=== PATIENT | female | born 1935 | race Two or more races ===

== ENCOUNTER 2017-06-06 16:10 | Inpatient (IN) | payer MEDICARE ==
[~2017-06-06] VITALS: Ht 165.1 cm; Wt 45.8 kg
[2017-06-06 16:30] VITALS: BP 145/84
--- NOTE | 2017-06-06 16:30 | NUR ---
COMMUNITY OUTREACH WORKER NOTE :ADMITTED 81 Y/O FEMALE ON 5150 HOLD FOR DTS , PER 5150 HOLD PATIENT STATED "I WANT TO GO TO SLEEP AND NOT WAKE UP .AND NOT EATING IN ASSISTED LIVING .PATIENT HAS HX OF HYPOTHYROIDISM ,OSTEOPOROSIS AND DEPRESSION .ON 1:1 ASSESSMENT PATIENT STATED" I HAVE BEEN DEPRESSED ALL MY LIFE ,MY WAS SICK FOR 2 YEARS NOTIFIED WITH ADMISSION ORDERS ,LEFT MESSAGE FOR .PATIENT HAS RIGHT SECOND FINGER REDNESS AMBULATORY AND INDEPENDENT ,VS STABLE BP 145/84 , O2 SAT 99% RA ,PULSE 107,R 20 T 98 .PATIENT'S RIGHT HAND BOOK GIVEN AND EXPLAINED TO PATIENT ABLE TO VERBALIZE UNDERSTANDING .START Q15 MINUTES SAFETY CHECK .
[2017-06-06] MEDS ORDERED: clonazePAM 0.5 MG TABLET PO PRN (17:00)
[2017-06-06] MEDS ORDERED: MAGNESIUM HYDROXIDE 30 ML UDC PO PRN (17:00)
[2017-06-06] MEDS ORDERED: MAG HYDROX/AL HYDROX/SIMETH 30 ML UDC PO PRN (17:00)
[2017-06-06] MEDS ORDERED: ACETAMINOPHEN 325 MG TABLET PO PRN (17:00)
[2017-06-06] MEDS ORDERED: MIRT15TA PO (17:20)
[2017-06-06] MEDS ORDERED: VENL150C58 PO (17:20)
[2017-06-06] MEDS ORDERED: ASPI-1169 PO (17:20)
[2017-06-06] MEDS ORDERED: LEVO50TA8 PO (17:20)
[2017-06-06] MEDS ORDERED: IBAN150T PO (17:20)
[2017-06-06] MEDS ORDERED: CEPH-570 PO (17:20)
[2017-06-06] MEDS ORDERED: OLAN2.5T3 PO (17:26)
[2017-06-06] MEDS ORDERED: OLAN10VI IM (17:26)
[2017-06-06 20:01] VITALS: BP 118/73
--- NOTE | 2017-06-06 20:24 | NUR ---
GPS RN NOTES: SPOKE TO SEMI AUTOMATIC SEWING MACHINE OPERATOR LEANNA LUJAN AND NOTIFIED OF NEW ADMISSION TO RECONCILE MEDICATION.
[2017-06-07 08:00] VITALS: BP 121/72
[2017-06-07 08:52] LABS: CHOLESTEROL 199 mg/dL (<200); HDL CHOLESTEROL 105 mg/dL (40-60); LDL 93 mg/dL (0-99); TRIGLYCERIDES 64 mg/dL (30-150)
[2017-06-07] MEDS: ASPIRIN 81 MG TAB.CHEW PO SCH (08:53)
[2017-06-07] MEDS: LEVOTHYROXINE SODIUM 50 MCG TABLET PO SCH (08:53)
[2017-06-07] MEDS: CEPHALEXIN MONOHYDRATE 500 MG CAPSULE PO SCH ×3 (08:53→17:05)
[2017-06-07] MEDS: VENLAFAXINE XR 150 MG CAP.SR.24H PO SCH (10:31)
[2017-06-07] MEDS: QUETIAPINE FUMARATE 25 MG TABLET PO SCH ×2 (10:32→17:05)
[2017-06-07 12:47] LABS: ALANINE AMINOTRANSFERASE 38 U/L (12-78); ALBUMIN 3.8 g/dL (3.4-5.0); ALKALINE PHOSPHATASE 68 U/L (46-116); ASPARTATE AMINOTRANSFERASE 33 U/L (15-37); BILIRUBIN,TOTAL 0.5 mg/dL (0.2-1.0); CALCIUM, SERUM 9.3 mg/dL (8.5-10.1); CARBON DIOXIDE 26 mmol/L (21-32); CHLORIDE 105 mmol/L (98-107); CREATININE 0.7 mg/dL (0.6-1.3); GLUCOSE 91 mg/dL (74-106); POTASSIUM 3.9 mmol/L (3.5-5.1); SODIUM SERUM 142 mmol/L (136-145); TOTAL PROTEIN, SERUM 7.4 g/dL (6.4-8.2); UREA NITROGEN, BLOOD 13 mg/dL (7-18)
[2017-06-07 15:45] VITALS: BP 126/70
[2017-06-07] MEDS: MIRTAZAPINE 15 MG TABLET PO SCH (17:07)
[2017-06-07 20:45] VITALS: BP 118/74
[2017-06-08] MEDS: CEPHALEXIN MONOHYDRATE 500 MG CAPSULE PO SCH ×3 (08:19→16:15)
[2017-06-08] MEDS: LEVOTHYROXINE SODIUM 50 MCG TABLET PO SCH (08:19)
[2017-06-08] MEDS: VENLAFAXINE XR 150 MG CAP.SR.24H PO SCH (08:19)
[2017-06-08] MEDS: QUETIAPINE FUMARATE 25 MG TABLET PO SCH ×2 (08:19→16:15)
[2017-06-08] MEDS: ASPIRIN 81 MG TAB.CHEW PO SCH (08:19)
[2017-06-08 09:37] VITALS: BP 147/82
--- NOTE | 2017-06-08 12:07 | NUR ---
WOUND CARE CONSULT: PT PRESENTS WITH CLOSED INCISION TO RT HIP. PT IS EXTREMELY THIN AND BONY. ALL SKIN PROTECTION RECOMMENDATIONS MADE AND DISCUSSED WITH NURSING STAFF. PT NOTED TO HAVE GPS ANKLE BRACELET ON LEFT LOWER LEG, PRESENT ON ADMISSION. ALL SKIN PROTECTION MEASURES IN PLACE. WILL SEE PRN. CLINE IN AGREEMENT WITH PLAN OF CARE. Addendum: 06/08/17 at 1210 by MELISSA FIELD WNDNU PLEASE DISREGARD ABOVE NOTE. INCORRECT PATIENT.
--- NOTE | 2017-06-08 12:10 | NUR ---
WOUND CARE CONSULT: PT PRESENTS WITH INTACT SKIN. PT IS EXTREMELY THIN AND BONY. ALL SKIN PROTECTION MEASURES IN PLACE AND DISCUSSED WITH NURSING STAFF. WILL SEE PRN. CURRENT ABBY SCORE IS 18. MD IN AGREEMENT WITH PLAN OF CARE. Addendum: 06/08/17 at 1212 by MELISSA FIELD WNDNU PT NOTED TO BE CONTINENT AND AMBULATORY. NURSING STAFF REPORT POOR ORAL INTAKE. RECOMMEND DIETARY FOLLOW UP.
[2017-06-08] MEDS: BOOST PLUS FOOD-CHOCLATE 237 ML BOX PO SCH ×2 (12:58→16:16)
--- NOTE | 2017-06-08 13:12 | NUR ---
GPS RN NOTE: NEW T.O . ORDER FROM DR EVANS EFFEXOR 75 MG PO BID STARTING TOMORROW ORDER PLACED AND CARED OUT. WILL CONTINUE MONITORING.
--- NOTE | 2017-06-08 13:13 | NUR ---
RN-CO: DR EVANS ORDERED 1:1 SOTTER FOR PATIENT FOR DTS.
[2017-06-08 16:36] VITALS: BP 153/65
[2017-06-08] MEDS: MIRTAZAPINE 15 MG TABLET PO SCH (17:40)
[2017-06-08 20:22] VITALS: BP 114/78
[2017-06-08] MEDS: TEMAZEPAM 7.5 MG CAPSULE PO PRN (20:35)
[2017-06-09 08:00] VITALS: BP 140/81
[2017-06-09] MEDS: LEVOTHYROXINE SODIUM 50 MCG TABLET PO SCH (08:34)
[2017-06-09] MEDS: BOOST PLUS FOOD-CHOCLATE 237 ML BOX PO SCH ×2 (08:55→16:53)
[2017-06-09] MEDS: ASPIRIN 81 MG TAB.CHEW PO SCH (08:57)
[2017-06-09] MEDS: CEPHALEXIN MONOHYDRATE 500 MG CAPSULE PO SCH ×3 (08:57→16:52)
[2017-06-09] MEDS: VENLAFAXINE 37.5 MG TABLET PO SCH ×2 (08:57→16:52)
[2017-06-09] MEDS: QUETIAPINE FUMARATE 25 MG TABLET PO SCH ×2 (08:57→16:52)
--- NOTE | 2017-06-09 12:32 | NUR ---
Initial Discharge Plan: Pt lives at [facility] facility [address] [place] [id number]; with her , who suffers from dementia. Pt agreed to return to assisted living facility upon her discharge. however reported inadequate medical team 'to help us." SW will follow up and ensure pt is properly placed in a facility that meets her needs. SW spoke to pts daughter, Mery Araujo who provided some collateral information. SW will follow up to ensure pt is properly and safely discharged.
[2017-06-09 15:45] VITALS: BP 129/72
[2017-06-09] MEDS: MIRTAZAPINE 15 MG TABLET PO SCH (17:53)
[2017-06-09 20:00] VITALS: BP 102/75
[2017-06-09] MEDS: TEMAZEPAM 7.5 MG CAPSULE PO PRN (21:20)
[2017-06-10] MEDS: LEVOTHYROXINE SODIUM 50 MCG TABLET PO SCH (07:46)
[2017-06-10] MEDS: BOOST PLUS FOOD-CHOCLATE 237 ML BOX PO SCH ×2 (07:46→16:21)
[2017-06-10 08:00] VITALS: BP 125/71
[2017-06-10] MEDS: VENLAFAXINE 37.5 MG TABLET PO SCH ×2 (09:24→16:21)
[2017-06-10] MEDS: ASPIRIN 81 MG TAB.CHEW PO SCH (09:24)
[2017-06-10] MEDS: QUETIAPINE FUMARATE 25 MG TABLET PO SCH ×3 (09:24→16:21)
[2017-06-10] MEDS: CEPHALEXIN MONOHYDRATE 500 MG CAPSULE PO SCH ×3 (09:24→16:21)
[2017-06-10 17:07] VITALS: BP 110/58
[2017-06-10] MEDS: MIRTAZAPINE 15 MG TABLET PO SCH (17:35)
[2017-06-10 17:41] LABS: APPEARANCE,URINE CLEAR (CLEAR); BILIRUBIN,URINE NEGATIVE (NEGATIVE); BLOOD, URINE NEGATIVE Ery/uL (NEGATIVE); COLOR,URINE YELLOW (YELLOW); KETONES,URINE NEGATIVE (NEGATIVE); LEUKOCYTE ESTERASE ,URINE TRACE (NEGATIVE); NITRITE, URINE NEGATIVE (NEGATIVE); PH,URINE 6.5 (5.0-8.0); PROTEIN,URINE NEGATIVE (NEGATIVE); UGLUCOSE NEGATIVE (NEGATIVE); UROBILINOGEN,URINE 0.2 EU/dL (0.2)
[2017-06-10 17:57] LABS: RBC,URINE 0-2 /HPF (0-2)
[2017-06-10 17:58] LABS: BACTERIA,URINE Few /HPF (None Seen); SQUAMOUS EPITHELIAL CELL,UR Few /HPF (None Seen)
[2017-06-10 20:00] VITALS: BP 109/70
[2017-06-11] MEDS: LEVOTHYROXINE SODIUM 50 MCG TABLET PO SCH ×2 (07:30→08:02)
[2017-06-11 08:00] VITALS: BP 131/62
[2017-06-11] MEDS: BOOST PLUS FOOD-CHOCLATE 237 ML BOX PO SCH ×2 (08:02→16:32)
[2017-06-11] MEDS: ASPIRIN 81 MG TAB.CHEW PO SCH (09:00)
[2017-06-11] MEDS: CEPHALEXIN MONOHYDRATE 500 MG CAPSULE PO SCH ×3 (09:00→16:33)
[2017-06-11] MEDS: QUETIAPINE FUMARATE 25 MG TABLET PO SCH ×3 (09:00→16:32)
[2017-06-11] MEDS: VENLAFAXINE 37.5 MG TABLET PO SCH ×2 (09:00→16:32)
[2017-06-11 16:00] VITALS: BP 118/78
[2017-06-11] MEDS: MIRTAZAPINE 15 MG TABLET PO SCH (18:14)
[2017-06-11 20:00] VITALS: BP 113/76
--- NOTE | 2017-06-12 02:57 | NUR ---
Pt has been selectively mute mostly but redirectable.
[2017-06-12 08:00] VITALS: BP 135/93
[2017-06-12] MEDS: BOOST PLUS FOOD-CHOCLATE 237 ML BOX PO SCH ×2 (08:21→17:00)
[2017-06-12] MEDS: LEVOTHYROXINE SODIUM 50 MCG TABLET PO SCH (08:21)
[2017-06-12] MEDS: VENLAFAXINE 37.5 MG TABLET PO SCH ×2 (08:22→17:02)
[2017-06-12] MEDS: CEPHALEXIN MONOHYDRATE 500 MG CAPSULE PO SCH ×3 (08:22→17:02)
[2017-06-12] MEDS: QUETIAPINE FUMARATE 25 MG TABLET PO SCH ×3 (08:22→17:02)
[2017-06-12] MEDS: ASPIRIN 81 MG TAB.CHEW PO SCH (08:22)
[2017-06-12 16:29] VITALS: BP 130/54
[2017-06-12] MEDS: MIRTAZAPINE 15 MG TABLET PO SCH (17:02)
--- NOTE | 2017-06-12 17:39 | NUR ---
[id number]: PT HAD THREE CONSECUTIVE LOOSE STOOL, WATERY CONSISTENCY, NO PRESENCE OF BLOOD NOTED. NOTIFIED DR. CALDERON ABOUT LOOSE STOOL. ORDERED STOOL C-DIFFICLE. ORDERED CARRIED OUT. PLACED PT ON ISOLATION. Addendum: 06/12/17 at 1803 by DANIEL RICH RN [id number]: ENTRY ON WRONG PT
[2017-06-12 19:53] VITALS: BP 100/58
--- NOTE | 2017-06-13 00:25 | NUR ---
Pt remains selectively mute mostly but redirectable.
[2017-06-13] MEDS: LEVOTHYROXINE SODIUM 50 MCG TABLET PO SCH (08:02)
[2017-06-13] MEDS: VENLAFAXINE 37.5 MG TABLET PO SCH ×2 (08:02→16:20)
[2017-06-13] MEDS: CEPHALEXIN MONOHYDRATE 500 MG CAPSULE PO SCH ×3 (08:02→16:20)
[2017-06-13] MEDS: ASPIRIN 81 MG TAB.CHEW PO SCH (08:02)
[2017-06-13] MEDS: QUETIAPINE FUMARATE 25 MG TABLET PO SCH ×3 (08:02→16:20)
[2017-06-13] MEDS: BOOST PLUS FOOD-VANILLA 237 ML BOX PO SCH ×2 (08:44→16:32)
[2017-06-13 09:51] VITALS: BP 137/80
[2017-06-13] MEDS: LIDOCAINE 5% (PATCH) 1 EA PATCH TP SCH (15:35)
[2017-06-13 16:00] VITALS: BP 128/77
[2017-06-13] MEDS: MIRTAZAPINE 15 MG TABLET PO SCH (17:00)
[2017-06-13 19:53] VITALS: BP 103/62
[2017-06-13] MEDS: TEMAZEPAM 7.5 MG CAPSULE PO PRN (20:38)
[2017-06-14 08:00] VITALS: BP_SYST 128; BP_SYST 149; BP_DIAS 58; BP_DIAS 94
[2017-06-14] MEDS: QUETIAPINE FUMARATE 25 MG TABLET PO SCH ×3 (09:48→16:55)
[2017-06-14] MEDS: CEPHALEXIN MONOHYDRATE 500 MG CAPSULE PO SCH ×3 (09:48→16:55)
[2017-06-14] MEDS: LEVOTHYROXINE SODIUM 50 MCG TABLET PO SCH (09:48)
[2017-06-14] MEDS: VENLAFAXINE 37.5 MG TABLET PO SCH ×2 (09:48→16:55)
[2017-06-14] MEDS: ASPIRIN 81 MG TAB.CHEW PO SCH (09:48)
[2017-06-14] MEDS: BOOST PLUS FOOD-VANILLA 237 ML BOX PO SCH ×2 (09:52→16:56)
--- NOTE | 2017-06-14 15:54 | NUR ---
Discharge Planning: DANNI contacted pts daughter, Mery Araujo for discharge planning purposes. Per pt/daughter report pt would like to return to [facility] where her resides, upon discharge. DANNI left pts daughter a message asking her to be available tomorrow morning at 10 am to discuss and plan for pts discharge.
[2017-06-14] MEDS ORDERED: MIRTAZAPINE 15 MG TABLET PO SCH (16:15)
[2017-06-14 16:29] VITALS: BP 131/92
[2017-06-14] MEDS: LIDOCAINE 5% (PATCH) 1 EA PATCH TP SCH (16:55)
[2017-06-14 17:36] LABS: BASOPHILS % (AUTO) 0.3 % (0.0-2.0); EOSINOPHILS % (AUTO) 0.5 % (0.0-6.0); HEMATOCRIT 42 % (33-45); HEMOGLOBIN 14.4 g/dL (11.5-14.8); LYMPHOCYTES # (AUTO) 1.3 /CMM (0.8-4.8); LYMPHOCYTES % (AUTO) 31.3 % (20.0-44.0); MEAN CORPUSCULAR HEMOGLOBIN 30 PG (26.0-33.0); MEAN CORPUSCULAR HGB CONC 34 g/dl (31.0-36.0); MEAN CORPUSCULAR VOLUME 88 fL (82-100); MONOCYTES # (AUTO) 0.5 /CMM (0.1-1.30); MONOCYTES % (AUTO) 11.9 % (2.0-12.0); NEUTROPHILS # (AUTO) 2.4 /CMM (1.8-8.9); PLATELET COUNT (AUTO) 302 /CMM (150-450); RDW COEFFICIENT OF VARIATION 13.6 (11.5-15.0); RED BLOOD CELL COUNT(AUTO) 4.74 MIL/uL (4.0-5.2); WHITE BLOOD COUNT (AUTO) 4.2 K/uL (4.3-11.0)
[2017-06-14 17:53] LABS: ALANINE AMINOTRANSFERASE 35 U/L (12-78); ALBUMIN 3.7 g/dL (3.4-5.0); ALKALINE PHOSPHATASE 67 U/L (46-116); ASPARTATE AMINOTRANSFERASE 20 U/L (15-37); BILIRUBIN,TOTAL 0.2 mg/dL (0.2-1.0); CALCIUM, SERUM 9.3 mg/dL (8.5-10.1); CARBON DIOXIDE 27 mmol/L (21-32); CHLORIDE 103 mmol/L (98-107); CREATININE 0.6 mg/dL (0.6-1.3); GLUCOSE 103 mg/dL (74-106); MAGNESIUM 2.2 mg/dL (1.8-2.4); POTASSIUM 4.3 mmol/L (3.5-5.1); SODIUM SERUM 138 mmol/L (136-145); UREA NITROGEN, BLOOD 16 mg/dL (7-18)
[2017-06-14 20:29] VITALS: BP 128/63
[2017-06-14] MEDS: TEMAZEPAM 7.5 MG CAPSULE PO PRN (21:15)
[2017-06-15 08:00] VITALS: BP 140/66
[2017-06-15] MEDS: BOOST PLUS FOOD-VANILLA 237 ML BOX PO SCH ×2 (08:00→17:25)
[2017-06-15] MEDS: LEVOTHYROXINE SODIUM 50 MCG TABLET PO SCH (09:23)
[2017-06-15] MEDS: CEPHALEXIN MONOHYDRATE 500 MG CAPSULE PO SCH ×3 (09:24→17:24)
[2017-06-15] MEDS: QUETIAPINE FUMARATE 25 MG TABLET PO SCH (09:24)
[2017-06-15] MEDS: ASPIRIN 81 MG TAB.CHEW PO SCH (09:24)
[2017-06-15] MEDS: VENLAFAXINE 37.5 MG TABLET PO SCH ×2 (09:24→18:27)
[2017-06-15] MEDS ORDERED: VENLAFAXINE XR 150 MG CAP.SR.24H PO SCH (12:30)
[2017-06-15] MEDS: LIDOCAINE 5% (PATCH) 1 EA PATCH TP SCH (14:33)
[2017-06-15 16:00] VITALS: BP 164/72
[2017-06-15 20:20] VITALS: BP 127/67
[2017-06-15] MEDS: OLANZAPINE 2.5 MG TABLET PO SCH (20:24)
[2017-06-15] MEDS: MIRTAZAPINE 15 MG TABLET PO SCH (21:21)
[2017-06-16 08:00] VITALS: BP 132/82
[2017-06-16] MEDS: VENLAFAXINE 37.5 MG TABLET PO SCH ×3 (08:51→16:50)
[2017-06-16] MEDS: CEPHALEXIN MONOHYDRATE 500 MG CAPSULE PO SCH (08:51)
[2017-06-16] MEDS: ASPIRIN 81 MG TAB.CHEW PO SCH (08:51)
[2017-06-16] MEDS: BOOST PLUS FOOD-VANILLA 237 ML BOX PO SCH ×2 (08:54→16:51)
[2017-06-16] MEDS: LEVOTHYROXINE SODIUM 50 MCG TABLET PO SCH (09:22)
[2017-06-16] MEDS: LIDOCAINE 5% (PATCH) 1 EA PATCH TP SCH (15:00)
[2017-06-16 16:05] VITALS: BP 126/70
[2017-06-16] MEDS ORDERED: VENLAFAXINE XR 75 MG CAP.SR.24H PO SCH (17:00)
[2017-06-16 20:00] VITALS: BP 124/76
[2017-06-16] MEDS: MIRTAZAPINE 15 MG TABLET PO SCH (21:37)
[2017-06-16] MEDS: OLANZAPINE 2.5 MG TABLET PO SCH (21:38)
--- NOTE | 2017-06-16 22:26 | NUR ---
Patient is calm and cooperative, alert but confuse at times. Patient voiced that she is doing well, denied HI/SI and denies pain. Accepted and tolerates hs medications with no apparent distress noted, will continue to monitor for safety and provide support.
--- NOTE | 2017-06-17 02:56 | NUR ---
At the present time, patient is observed lying in bed, eyes closed, respirations even and unlabored, will continue to monitor for safety and provide support.
[2017-06-17 08:00] VITALS: BP 120/59
[2017-06-17] MEDS: BOOST PLUS FOOD-VANILLA 237 ML BOX PO SCH ×2 (08:00→17:00)
[2017-06-17] MEDS: ASPIRIN 81 MG TAB.CHEW PO SCH (09:08)
[2017-06-17] MEDS: LEVOTHYROXINE SODIUM 50 MCG TABLET PO SCH (09:09)
[2017-06-17] MEDS: VENLAFAXINE 37.5 MG TABLET PO SCH ×3 (09:09→17:38)
[2017-06-17] MEDS: LIDOCAINE 5% (PATCH) 1 EA PATCH TP SCH (15:00)
[2017-06-17 16:00] VITALS: BP 114/73
--- NOTE | 2017-06-17 18:21 | NUR ---
PT MORE DEPRESSED TODAY IN BED MOST OF THE SHIFT MED COMPLIANT AND ATE MOST OF MEALS NO SELF DISCLOUSURE
[2017-06-17] MEDS ORDERED: OLANZAPINE 2.5 MG TABLET PO SCH (20:00)
[2017-06-17 21:42] VITALS: BP 101/51
[2017-06-17] MEDS: MIRTAZAPINE 15 MG TABLET PO SCH (22:15)
[2017-06-18] MEDS: LEVOTHYROXINE SODIUM 50 MCG TABLET PO SCH ×2 (06:54→08:39)
[2017-06-18 08:00] VITALS: BP 106/59
[2017-06-18] MEDS: BOOST PLUS FOOD-VANILLA 237 ML BOX PO SCH ×2 (08:02→17:33)
[2017-06-18] MEDS: VENLAFAXINE XR 75 MG CAP.SR.24H PO SCH (08:39)
[2017-06-18] MEDS: ASPIRIN 81 MG TAB.CHEW PO SCH (08:39)
[2017-06-18] MEDS: LIDOCAINE 5% (PATCH) 1 EA PATCH TP SCH (15:06)
[2017-06-18 16:00] VITALS: BP 111/56
[2017-06-18] MEDS ORDERED: OLANZAPINE 5 MG TABLET ONE (20:44)
[2017-06-18] MEDS: OLANZAPINE 2.5 MG TABLET PO SCH (20:45)
[2017-06-18] MEDS: MIRTAZAPINE 15 MG TABLET PO SCH (21:28)
[2017-06-19 03:11] VITALS: BP 103/52
[2017-06-19 08:00] VITALS: BP 105/62
[2017-06-19] MEDS: ASPIRIN 81 MG TAB.CHEW PO SCH (08:26)
[2017-06-19] MEDS: VENLAFAXINE XR 75 MG CAP.SR.24H PO SCH (08:26)
[2017-06-19] MEDS: LEVOTHYROXINE SODIUM 50 MCG TABLET PO SCH (08:29)
--- NOTE | 2017-06-19 08:30 | NUR ---
GPS RN NOTE: SYNTHROID WAS ADMINISTER UNSCHEDULED MED DUE TO MORNING SHIFT GAVE MEDICATION FOR TODAY .
[2017-06-19] MEDS: BOOST PLUS FOOD-VANILLA 237 ML BOX PO SCH ×2 (08:47→17:06)
[2017-06-19] MEDS ORDERED: VENLAFAXINE XR 75 MG CAP.SR.24H PO ONE (14:00)
[2017-06-19] MEDS: LIDOCAINE 5% (PATCH) 1 EA PATCH TP SCH (15:11)
[2017-06-19 16:00] VITALS: BP 114/60
[2017-06-19 19:52] VITALS: BP 111/74
[2017-06-19] MEDS: OLANZAPINE 2.5 MG TABLET PO SCH (20:19)
[2017-06-19] MEDS: MIRTAZAPINE 15 MG TABLET PO SCH (21:54)
--- NOTE | 2017-06-20 01:47 | NUR ---
Pt has been selectively mute mostly but compliant & redirectable.
[2017-06-20 08:00] VITALS: BP 140/72
[2017-06-20] MEDS: ASPIRIN 81 MG TAB.CHEW PO SCH (08:48)
[2017-06-20] MEDS: VENLAFAXINE XR 75 MG CAP.SR.24H PO SCH (08:48)
[2017-06-20] MEDS: LEVOTHYROXINE SODIUM 50 MCG TABLET PO SCH (08:48)
[2017-06-20] MEDS: BOOST PLUS FOOD-VANILLA 237 ML BOX PO SCH ×2 (09:17→16:21)
--- NOTE | 2017-06-20 11:21 | NUR ---
Discharge Planning: Vice President Consulting Services contacted [facility], [address], [place] [id number]; for discharge planning purposes. DANNI spoke to [place] Staff Flight Line Service Attendant from the facility and inquired about memory care services as pt will require them upon discharge. DANNI was informed that facility does not have memory care services, however [facility] does. DANNI will provide this information to pts family. DANNI will follow up.
--- NOTE | 2017-06-20 11:32 | NUR ---
Discharge Planning: SW contacted Mery Araujo , pts daughter to discuss pts discharge plan; however was unable to speak to her. A detailed message was left asking for a callback. Pt has been cleared for discharge and accepted to [facility] facility. SW will follow up to ensure pt is properly and safely placed.
--- NOTE | 2017-06-20 13:36 | NUR ---
Discharge Planning: SW contacted pts son, Luciano Valencia for discharge planning purposes. SW informed pts son that pt was cleared and ready for discharge tomorrow. Pt will be transported to [facility], time to be determined. Pts son reported feeling happy and is in agreement. SW will make arrangements.
[2017-06-20] MEDS: LIDOCAINE 5% (PATCH) 1 EA PATCH TP SCH (15:00)
[2017-06-20 16:11] VITALS: BP 123/83
--- NOTE | 2017-06-20 19:30 | NUR ---
GPS RN NOTE, RECEIVED PATIENT AWAKE AND IN BED, NO S/S OR COMPLAINTS OF PAIN AT THIS TIME. PATIENT DISPLAYING NO S/S OF APPARENT DISTRESS AT THIS TIME. PATIENT BREATHING IS UNLABORED WITH EQUAL RISE AND FALL OF THE CHEST. PATIENT IS ALERT AND ORIENTED X 2 ON ROOM AIR WITH A SPO2 99 %. PATIENT IS MED COMPLIANT, DEPRESSED, CONFUSED AT TIMES, COOPERATIVE, AND NEEDS REORIENTATION AT TIMES. PATIENT DENIES SI AND HI AT THIS TIME. PATIENT ASSISTED WITH TURNING AND REPOSITIONING Q2HR AND PRN FOR COMFORT AND CIRCULATION. PATIENT HAS NO NEEDS AT THIS TIME. PATIENT EDUCATED ON THE USE OF THE CALL PARDO. PATIENT BED SIDE RAILS UP X 2 FOR SAFETY, BED IS LOCKED AND LOW, WILL CONTINUE TO MONITOR THIS PATIENT WITH THE HELP OF STAFF.
[2017-06-20 19:48] VITALS: BP 130/65
[2017-06-20] MEDS: OLANZAPINE 2.5 MG TABLET PO SCH (20:09)
[2017-06-20] MEDS: MIRTAZAPINE 15 MG TABLET PO SCH (21:49)
[2017-06-21 08:00] VITALS: BP 127/87
[2017-06-21] MEDS: VENLAFAXINE XR 75 MG CAP.SR.24H PO SCH (08:35)
[2017-06-21] MEDS: ASPIRIN 81 MG TAB.CHEW PO SCH (08:35)
[2017-06-21] MEDS: LEVOTHYROXINE SODIUM 50 MCG TABLET PO SCH (08:35)
[2017-06-21] MEDS: BOOST PLUS FOOD-VANILLA 237 ML BOX PO SCH (09:02)
--- NOTE | 2017-06-21 10:12 | NUR ---
RN-CO: DR MARTINEZ GAVE AN ORDER TO DISCONTINUE HOLD AND DISCHARGE PATIENT TO SNF, NOTED.
--- NOTE | 2017-06-21 10:16 | NUR ---
RN-CO: PATIENT REMAIN CALM, COOPERATIVE TO CARE.DENIED SUICIDAL AND HOMICIDAL IDEATION, DENIED COMMAND HALLUCINATION. PATIENT WAS ADVISED THAT SHE IS FOR DISCHARGE TODAY AND AGREED WITH IT. NO ACUTE DISTRESS NOTED.
[2017-06-21] MEDS ORDERED: OLANZAPINE 2.5 MG TABLET PO ONE (10:30)
--- NOTE | 2017-06-21 11:00 | NUR ---
RN-CO: DR BARBARA REEVES MEDICALLY CLEARED THE PATIENT FOR DISCHARGE. PATEINT WAS SEEN AND EXAMINED BY HIM TODAY.
--- NOTE | 2017-06-21 13:01 | NUR ---
RN-CO: PATIENT SIGNED ALL DISCHARGE PAPERS AFTER RN DISCUSSED IT TO HER. SHE VERBALIZED UNDERSTANDING. REPORT WAS GIVEN TO "FELI" RN IN [place]. ALL BELONGINGS WILL BE GIVEN BACK TO THE PATIENT.
--- NOTE | 2017-06-21 13:04 | NUR ---
-RN-CO: TIM WETZEL SON [phone] IS AWARE OF PT'S DISCHARGE.
--- NOTE | 2017-06-21 14:40 | NUR ---
RN-CO: REPORT GIVEN TO AMBULANCE EMT. AND ASSISTED TO JAZMINE. ALL BELONGINGS GIVEN BACK.
--- NOTE | 2017-06-22 11:14 | NUR ---
Discharge Note: Patient will be discharged to [facility], [address] [place] [address]; via ambulance (trip # [id number]) at 2pm. Pt, and pts family (Luciano Valencia, and Mery Araujo [phone]) have been notified and are in agreement. Pts quality analyst at the facility will be Dr. Peters, [address]. [address] [place] [address]; and Psychiatrist, Dr. Mcnair, [address]. [address] [place]. [phone]; .
== END 2017-06-21 15:17 | DRG 885 ==
LOC: GPS 16:10
PROVIDERS: ADMIT Psychiatry & Neurology Psychiatry; ATTEND Psychiatry & Neurology Psychiatry
DX: F33.3 Major depressive disorder, recurrent, severe with psychotic symptoms (principal); F50.9 Eating disorder, unspecified; E44.0 Moderate protein-calorie malnutrition; F03.90 Unspecified dementia, unspecified severity, without behavioral disturbance, psychotic disturbance, mood disturbance, and anxiety; R45.851 Suicidal ideations; N39.0 Urinary tract infection, site not specified; E03.9 Hypothyroidism, unspecified; Z73.6 Limitation of activities due to disability; F41.9 Anxiety disorder, unspecified; E78.5 Hyperlipidemia, unspecified; I25.10 Atherosclerotic heart disease of native coronary artery without angina pectoris; G89.29 Other chronic pain; M81.0 Age-related osteoporosis without current pathological fracture; Z91.14 Patient's other noncompliance with medication regimen; Z79.82 Long term (current) use of aspirin; I10 Essential (primary) hypertension
CPT/HCPCS: 36415; 70450-TC; 80053-TC; 80061-TC; 81000-TC; 83735-TC; 84443-TC; 85025-TC; 92611-TC

== ENCOUNTER 2018-02-07 11:41 | Inpatient (IN) | payer MEDICARE ==
[~2018-02-07] VITALS: Ht 162.6 cm; Wt 55.3 kg
[~2018-02-07 11:41] MED LIST: ASPI-1169 PO; IBAN150T PO; LEVO50TA8 PO
[2018-02-07] MEDS: ASPIRIN 81 MG TAB.CHEW PO SCH (20:04)
[2018-02-07] MEDS: LEVOTHYROXINE SODIUM 50 MCG TABLET PO SCH (20:04)
[2018-02-07] MEDS ORDERED: ACETAMINOPHEN 325 MG TABLET PO PRN (22:00)
[2018-02-07] MEDS ORDERED: MAG HYDROX/AL HYDROX/SIMETH 30 ML UDC PO PRN (22:00)
[2018-02-07] MEDS ORDERED: MAGNESIUM HYDROXIDE 30 ML UDC PO PRN (22:00)
[2018-02-07 22:11] VITALS: BP 123/80
--- NOTE | 2018-02-07 22:48 | NUR ---
ADMISSION NOTES ADMITTED THIS 82 Y/O FEMALE PATIENT DIRECT ADMIT FROM [facility] , PT IS ON 5150 HOLD , PER HOLD DTS SI, PER HOLD TRYING TO GET OUT OF A MOVING VEHICLE AND THEN THREATENED TO JUMP OUT OF A SECOND STORY WINDOW SO DEPRESSED YOU ARE NO LONGER EATING DRINKING FLUIDS OR TAKING CARE OF YOUR SELF ,UNABLE TO CONTRACT FOR SAFETY . UPON FACE TO FACE ASSESSMENT PATIENT IS A&O X- 2,3,DEPRESSED DENIES SI HI AT THIS TIME,. PT.IS POOR HISTORIAN, POOR INSIGHT ,POOR JUDGEMENT ,V/S WNL, NO ACUTE DISTRESS NOTED , MD AWARE AND NOTIFIED OF THE ADMISSION, SKIN ASSESSMENT DONE, BUT PT. ALLOWED ONLY VISUAL SUPERFICIAL SKIN ASSESSMENT . PICTURE TAKEN AND PLACED IN CHART, ENCOURAGED PT. VERBALIZED ANY FEELING CONCERN TO STAFF, ORIENT TO UNIT POLICY, WILL CONTINUE TO MONITOR FOR Q15 SAFETY AND BEHAVIOR.
[2018-02-07 22:55] VITALS: BP 148/73
[2018-02-08] MEDS ORDERED: Z GUARD REMEDY 2 OZ OINT TP PRN (03:30)
[2018-02-08 07:08] LABS: CALCIUM, SERUM 8.6 mg/dL (8.5-10.1); CARBON DIOXIDE 24 mmol/L (21-32); CHLORIDE 99 mmol/L (98-107); CREATININE 0.5 mg/dL (0.6-1.3); GLUCOSE 98 mg/dL (74-106); MAGNESIUM 2.1 mg/dL (1.8-2.4); PHOSPHORUS 2.5 mg/dL (2.5-4.9); POTASSIUM 4.2 mmol/L (3.5-5.1); SODIUM SERUM 133 mmol/L (136-145); UREA NITROGEN, BLOOD 6 mg/dL (7-18)
[2018-02-08 07:25] LABS: BASOPHILS % (AUTO) 0.4 % (0.0-2.0); EOSINOPHILS % (AUTO) 0.3 % (0.0-6.0); HEMATOCRIT 43 % (33-45); HEMOGLOBIN 13.8 g/dL (11.5-14.8); LYMPHOCYTES # (AUTO) 1.7 /CMM (0.8-4.8); LYMPHOCYTES % (AUTO) 32.1 % (20.0-44.0); MEAN CORPUSCULAR HEMOGLOBIN 29 PG (26.0-33.0); MEAN CORPUSCULAR HGB CONC 32 g/dl (31.0-36.0); MEAN CORPUSCULAR VOLUME 90 fL (82-100); MONOCYTES # (AUTO) 0.5 /CMM (0.1-1.30); MONOCYTES % (AUTO) 9.4 % (2.0-12.0); NEUTROPHILS # (AUTO) 3.1 /CMM (1.8-8.9); NEUTROPHILS % (AUTO) 57.8 % (43.0-81.0); PLATELET COUNT (AUTO) 323 /CMM (150-450); RDW COEFFICIENT OF VARIATION 13.4 (11.5-15.0); RED BLOOD CELL COUNT(AUTO) 4.81 MIL/uL (4.0-5.2); WHITE BLOOD COUNT (AUTO) 5.3 K/uL (4.3-11.0)
[2018-02-08 08:14] VITALS: BP 106/78
[2018-02-08] MEDS: LEVOTHYROXINE SODIUM 50 MCG TABLET PO SCH (08:25)
[2018-02-08] MEDS: Z GUARD REMEDY 2 OZ OINT TP SCH (08:25)
[2018-02-08] MEDS: ASPIRIN 81 MG TAB.CHEW PO SCH (08:25)
--- NOTE | 2018-02-08 09:19 | NUR ---
WOUND CARE CONSULT: PT PRESENTS CONTINENT AND INDEPENDENT WITH BED MOBILITY. DEFER TO MD FOR BUNION. WILL SEE PRN.
[2018-02-08 15:31] VITALS: BP 134/72
[2018-02-08 20:43] VITALS: BP 147/77
[2018-02-08] MEDS: MIRTAZAPINE 15 MG TABLET PO SCH (21:18)
[2018-02-09 06:55] LABS: ALANINE AMINOTRANSFERASE 27 U/L (12-78); ALBUMIN 3.4 g/dL (3.4-5.0); ALKALINE PHOSPHATASE 60 U/L (46-116); ASPARTATE AMINOTRANSFERASE 20 U/L (15-37); BILIRUBIN,TOTAL 0.4 mg/dL (0.2-1.0); CARBON DIOXIDE 28 mmol/L (21-32); CHLORIDE 101 mmol/L (98-107); CREATININE 0.6 mg/dL (0.6-1.3); GLUCOSE 90 mg/dL (74-106); POTASSIUM 4.3 mmol/L (3.5-5.1); SODIUM SERUM 136 mmol/L (136-145); TOTAL PROTEIN, SERUM 6.4 g/dL (6.4-8.2); UREA NITROGEN, BLOOD 7 mg/dL (7-18)
[2018-02-09 06:57] LABS: BASOPHILS % (AUTO) 0.4 % (0.0-2.0); EOSINOPHILS % (AUTO) 0.7 % (0.0-6.0); HEMATOCRIT 44 % (33-45); HEMOGLOBIN 14.5 g/dL (11.5-14.8); LYMPHOCYTES # (AUTO) 1.8 /CMM (0.8-4.8); LYMPHOCYTES % (AUTO) 40.2 % (20.0-44.0); MEAN CORPUSCULAR HEMOGLOBIN 29 PG (26.0-33.0); MEAN CORPUSCULAR HGB CONC 33 g/dl (31.0-36.0); MEAN CORPUSCULAR VOLUME 89 fL (82-100); MONOCYTES # (AUTO) 0.6 /CMM (0.1-1.30); MONOCYTES % (AUTO) 12.6 % (2.0-12.0); NEUTROPHILS # (AUTO) 2.1 /CMM (1.8-8.9); NEUTROPHILS % (AUTO) 46.1 % (43.0-81.0); PLATELET COUNT (AUTO) 323 /CMM (150-450); RDW COEFFICIENT OF VARIATION 13.5 (11.5-15.0); RED BLOOD CELL COUNT(AUTO) 4.94 MIL/uL (4.0-5.2); WHITE BLOOD COUNT (AUTO) 4.6 K/uL (4.3-11.0)
[2018-02-09 07:08] LABS: CHOLESTEROL 187 mg/dL (<200); HDL CHOLESTEROL 84 mg/dL (40-60); LDL 86 mg/dL (0-99); TRIGLYCERIDES 72 mg/dL (30-150)
[2018-02-09 08:00] VITALS: BP 155/92
[2018-02-09] MEDS: clonazePAM 0.5 MG TABLET PO PRN (09:13)
[2018-02-09] MEDS: VENLAFAXINE XR 150 MG CAP.SR.24H PO SCH (09:13)
[2018-02-09] MEDS: ASPIRIN 81 MG TAB.CHEW PO SCH (09:13)
[2018-02-09] MEDS: LEVOTHYROXINE SODIUM 50 MCG TABLET PO SCH (09:13)
[2018-02-09] MEDS: Z GUARD REMEDY 2 OZ OINT TP SCH (09:15)
--- NOTE | 2018-02-09 12:45 | NUR ---
SW attempted to contact pts Son Rowdy [phone] to discuss discharge plan. SW left voicemail for callback.
--- NOTE | 2018-02-09 12:52 | NUR ---
INITIAL DISCHARGE PLAN: Per pt she wishes to return to [facility] [address] [place] [address] . However, she stated facility may not be able to take her back due to her needing more care. Pt is open to idea of being discharged to a alf closer to her home. Per intake Son Rowdy [phone] stated on admission that pt needs placement and is aware that pt will be able to be placed locally. SW will help form a safe and proper discharge in collaboration with MD and pts son.
[2018-02-09 16:08] VITALS: BP 132/73
[2018-02-09 20:00] VITALS: BP 112/75
[2018-02-09] MEDS: MIRTAZAPINE 15 MG TABLET PO SCH (21:24)
[2018-02-10 08:00] VITALS: BP 130/85
--- NOTE | 2018-02-10 08:18 | NUR ---
SW attempted to contact pts Son Rowdy [phone] to discuss discharge plan. SW left voicemail for callback.
[2018-02-10] MEDS: VENLAFAXINE XR 150 MG CAP.SR.24H PO SCH (08:42)
[2018-02-10] MEDS: LEVOTHYROXINE SODIUM 50 MCG TABLET PO SCH (08:42)
[2018-02-10] MEDS: ASPIRIN 81 MG TAB.CHEW PO SCH (08:42)
[2018-02-10] MEDS: Z GUARD REMEDY 2 OZ OINT TP SCH (08:43)
[2018-02-10 16:00] VITALS: BP 136/79
--- NOTE | 2018-02-10 16:00 | NUR ---
SW contact pts Son Rowdy [phone] to discuss discharge plan. Rowdy stated he wishes for pt to return to [address] [address] tel [phone] and he or brother Luciano [phone] will transport pt.
[2018-02-10 20:00] VITALS: BP 155/73
[2018-02-10] MEDS: MIRTAZAPINE 15 MG TABLET PO SCH (22:06)
[2018-02-11 08:00] VITALS: BP 145/82
[2018-02-11] MEDS: LEVOTHYROXINE SODIUM 50 MCG TABLET PO SCH (08:04)
[2018-02-11] MEDS: VENLAFAXINE XR 150 MG CAP.SR.24H PO SCH (08:04)
[2018-02-11] MEDS: ASPIRIN 81 MG TAB.CHEW PO SCH (08:04)
[2018-02-11] MEDS: Z GUARD REMEDY 2 OZ OINT TP SCH (08:05)
[2018-02-11 16:00] VITALS: BP 150/89
[2018-02-11 20:00] VITALS: BP 139/87
[2018-02-11] MEDS: TEMAZEPAM 7.5 MG CAPSULE PO PRN (21:43)
[2018-02-11] MEDS: MIRTAZAPINE 15 MG TABLET PO SCH (21:43)
--- NOTE | 2018-02-11 21:44 | NUR ---
UNABLE TO SLEEP, TEMAZEPAM 7.5 MG CAP 1 PO GIVEN.
[2018-02-12] MEDS: clonazePAM 0.5 MG TABLET PO PRN (02:17)
--- NOTE | 2018-02-12 02:18 | NUR ---
PATIENT UNEASY, UNABLE TO GO BACK TO SLEEP, CLONAZEPAM 0.25 MG TAB PO GIVEN.
[2018-02-12 08:00] VITALS: BP 147/86
[2018-02-12] MEDS: ASPIRIN 81 MG TAB.CHEW PO SCH (09:30)
[2018-02-12] MEDS: LEVOTHYROXINE SODIUM 50 MCG TABLET PO SCH (09:30)
[2018-02-12] MEDS: VENLAFAXINE XR 150 MG CAP.SR.24H PO SCH (09:30)
[2018-02-12] MEDS: Z GUARD REMEDY 2 OZ OINT TP SCH (09:31)
[2018-02-12 16:06] VITALS: BP 154/83
[2018-02-12 20:03] VITALS: BP 152/85
[2018-02-12] MEDS: MIRTAZAPINE 15 MG TABLET PO SCH (21:00)
[2018-02-12] MEDS: TEMAZEPAM 7.5 MG CAPSULE PO PRN (21:02)
--- NOTE | 2018-02-13 07:05 | NUR ---
gps initial notes Received patient in bed, asleep, head of bed elevated, no SOB or distress noted, on room air and tolerated well. No behavior noted at this time, will continue to monitor accordingly.
[2018-02-13 08:00] VITALS: BP 134/59
[2018-02-13] MEDS: LEVOTHYROXINE SODIUM 50 MCG TABLET PO SCH (08:06)
[2018-02-13] MEDS: ASPIRIN 81 MG TAB.CHEW PO SCH (08:06)
[2018-02-13] MEDS: VENLAFAXINE XR 150 MG CAP.SR.24H PO SCH (08:06)
[2018-02-13] MEDS: Z GUARD REMEDY 2 OZ OINT TP SCH (14:57)
[2018-02-13 16:00] VITALS: BP 136/60
--- NOTE | 2018-02-13 19:10 | NUR ---
RN GPS NOTE PATIENT IS AOX2-3 LAYING IN BED, CALM AND COOPERATIVE, NO PAIN REPORTED, AM NURSE REPORTED DECREASED APPETITE, NO S/SX OF RESPIRATORY OR CARDIAC DISTRESS, SAFETY MAINTAINED AT ALL TIMES, WILL CONTINUE TO MONITOR FOR ANY CHANGES.
[2018-02-13 19:37] VITALS: BP 129/75
[2018-02-13] MEDS: MIRTAZAPINE 15 MG TABLET PO SCH (21:08)
[2018-02-14 08:02] VITALS: BP 141/75
[2018-02-14] MEDS: LEVOTHYROXINE SODIUM 50 MCG TABLET PO SCH (08:24)
[2018-02-14] MEDS: Z GUARD REMEDY 2 OZ OINT TP SCH (08:24)
[2018-02-14] MEDS: VENLAFAXINE XR 150 MG CAP.SR.24H PO SCH (08:24)
[2018-02-14] MEDS: ASPIRIN 81 MG TAB.CHEW PO SCH (08:24)
[2018-02-14 16:04] VITALS: BP 134/79
[2018-02-14] MEDS: MULTIVITAMINS,THERAGRAN 1 UDTAB TABLET PO SCH (17:29)
[2018-02-14] MEDS: ENSURE ENLIVE 237 ML LIQUID (VANILLA) PO SCH (17:32)
[2018-02-14 20:04] VITALS: BP 105/71
--- NOTE | 2018-02-14 20:38 | NUR ---
RECIEVED ALERT ORIENTATED KNOWING SHE IS IN A HOSPITAL AND HER NAME. FRIENDLY AND COOPERATIVE BELONGINGS IN THE LOCK IN [facility] HER DENTURES. EYE GLASSES WITH HER.
[2018-02-14] MEDS: MIRTAZAPINE 15 MG TABLET PO SCH (21:48)
--- NOTE | 2018-02-15 05:21 | NUR ---
ENDING ZHANNA: SITTER AT THE BEDSIDE THIS 12 HOURS. WALKER AT THE BEDSIDE USED TO AMBULATE TO THE BATHROOM. CHANGEDHER OWN POSITION THRU THE NIGHT. VERBALIZES HER NEEDS THROUGH OUT THE NIGHT
[2018-02-15 08:00] VITALS: BP 123/71
[2018-02-15] MEDS: Z GUARD REMEDY 2 OZ OINT TP SCH (08:25)
[2018-02-15] MEDS: ASPIRIN 81 MG TAB.CHEW PO SCH (09:06)
[2018-02-15] MEDS: LEVOTHYROXINE SODIUM 50 MCG TABLET PO SCH (09:06)
[2018-02-15] MEDS: VENLAFAXINE XR 150 MG CAP.SR.24H PO SCH (09:06)
[2018-02-15] MEDS: ENSURE ENLIVE 237 ML LIQUID (VANILLA) PO SCH ×3 (09:06→17:05)
[2018-02-15] MEDS: MULTIVITAMINS,THERAGRAN 1 UDTAB TABLET PO SCH (09:06)
[2018-02-15 16:00] VITALS: BP 126/75
--- NOTE | 2018-02-15 19:20 | NUR ---
RN OPENING NOTES: RECEIVED PT SITTING IN ACTIVITY ROOM WATCHING TELEVISION. PT IS A/OX2-3. NO S/S OF DISTRESS NOTED. WILL CONTINUE TO MONITOR PT.
[2018-02-15 20:07] VITALS: BP 135/95
[2018-02-15] MEDS: MIRTAZAPINE 15 MG TABLET PO SCH (21:54)
[2018-02-16 08:00] VITALS: BP 143/69
[2018-02-16] MEDS: VENLAFAXINE XR 150 MG CAP.SR.24H PO SCH (08:06)
[2018-02-16] MEDS: MULTIVITAMINS,THERAGRAN 1 UDTAB TABLET PO SCH (08:06)
[2018-02-16] MEDS: LEVOTHYROXINE SODIUM 50 MCG TABLET PO SCH (08:07)
[2018-02-16] MEDS: ASPIRIN 81 MG TAB.CHEW PO SCH (08:07)
[2018-02-16] MEDS: Z GUARD REMEDY 2 OZ OINT TP SCH (08:07)
[2018-02-16] MEDS: ENSURE ENLIVE 237 ML LIQUID (VANILLA) PO SCH ×3 (08:12→16:00)
[2018-02-16 16:25] VITALS: BP 122/72
[2018-02-16 20:00] VITALS: BP 137/79
[2018-02-16] MEDS: MIRTAZAPINE 15 MG TABLET PO SCH (21:44)
[2018-02-17] MEDS: LEVOTHYROXINE SODIUM 50 MCG TABLET PO SCH (07:30)
[2018-02-17 08:00] VITALS: BP 101/66
[2018-02-17] MEDS: VENLAFAXINE XR 150 MG CAP.SR.24H PO SCH (09:05)
[2018-02-17] MEDS: MULTIVITAMINS,THERAGRAN 1 UDTAB TABLET PO SCH (09:05)
[2018-02-17] MEDS: ASPIRIN 81 MG TAB.CHEW PO SCH (09:05)
[2018-02-17] MEDS: ENSURE ENLIVE 237 ML LIQUID (VANILLA) PO SCH ×3 (09:06→18:18)
[2018-02-17] MEDS: Z GUARD REMEDY 2 OZ OINT TP SCH (09:07)
[2018-02-17 16:00] VITALS: BP 136/80
[2018-02-17 20:00] VITALS: BP 136/61
[2018-02-17] MEDS: MIRTAZAPINE 15 MG TABLET PO SCH (21:47)
[2018-02-18 08:00] VITALS: BP 99/52
[2018-02-18] MEDS: ASPIRIN 81 MG TAB.CHEW PO SCH (08:56)
[2018-02-18] MEDS: ENSURE ENLIVE 237 ML LIQUID (VANILLA) PO SCH (08:56)
[2018-02-18] MEDS: Z GUARD REMEDY 2 OZ OINT TP SCH (08:56)
[2018-02-18] MEDS: LEVOTHYROXINE SODIUM 50 MCG TABLET PO SCH (08:56)
[2018-02-18] MEDS: VENLAFAXINE XR 150 MG CAP.SR.24H PO SCH (08:56)
[2018-02-18] MEDS: MULTIVITAMINS,THERAGRAN 1 UDTAB TABLET PO SCH (08:56)
--- NOTE | 2018-02-18 09:19 | NUR ---
DR. EVANS GAVE AN ORDER TO D/C HOLD AND D/C TO [facility] AND TO FOLLOW UP WITH PSYCH AND MEDICAL DOCTORS. PSYCH PRESCRIPTIONS WAS CALLED IN TO [facility] AT [phone] AND FAX # [phone] AND SPOKE TO THE PHARMACIST KRISTIAN AND CONFIRMED THEY RECEIVED.
--- NOTE | 2018-02-18 10:21 | NUR ---
CHAIN SAW MECHANIC NOTE: PATIENT LEFT THE UNIT AT 930 WITH FAMILY. PATIENT IS MEDICALLY STABLE. DENIES SI/HI DURING DISCHARGE. PSYCHIATRIST DC HOLD, DISCHARGE ORDER, AND CONT MEDS. PATTERN DUPLICATOR AWARE AND AGREES. BELONGINGS WITH PATIENT DURING DISCHARGE. DISCHARGE PAPERS UNABLE TO SIGN BUT COSIGNED BY SECOND NURSE. SKIN ASSESSMENT REFUSED BY PATIENT.
--- NOTE | 2018-02-20 08:41 | NUR ---
DISCHARGE NOTE: Pt was discharged at 9:00am via private vehicle by son Luciano [phone] and transported to [facility] [address] [place] [address] . Pts mood was pleasant with congruent affect and denied visual/auditory hallucinations. Pt will be under the care of Psychiatrist: Dr. Ryder Koenig [address] [place], [place] [address] [phone] and [place] Guide: Dr. Steffen Muñoz [address] [place] [address] [phone]. The multidisciplinary exitcare form was done, printed, signed, and given to the patient.
[2018-03-06] MEDS ORDERED: BONIVA 150 MG PO SCH (09:00)
== END 2018-02-18 09:30 | DRG 885 ==
LOC: GPS 18:56 → GPSOV2 02-14 20:23 → GPS 02-15 17:49
PROVIDERS: ADMIT Psychiatry & Neurology Psychiatry; ATTEND Psychiatry & Neurology Psychiatry
DX: F29 Unspecified psychosis not due to a substance or known physiological condition (principal); F01.50 Vascular dementia, unspecified severity, without behavioral disturbance, psychotic disturbance, mood disturbance, and anxiety; E44.1 Mild protein-calorie malnutrition; F33.2 Major depressive disorder, recurrent severe without psychotic features; E78.5 Hyperlipidemia, unspecified; I10 Essential (primary) hypertension; Z68.20 Body mass index [BMI] 20.0-20.9, adult; E03.9 Hypothyroidism, unspecified; M81.0 Age-related osteoporosis without current pathological fracture; G89.29 Other chronic pain; I70.0 Atherosclerosis of aorta
CPT/HCPCS: 36415; 80048-TC; 80053-TC; 80061-TC; 83735-TC; 84100-TC; 85025-TC; 87081-TC; Z7610